=== PATIENT | male | born 1945 | race Caucasian/White ===

== ENCOUNTER → 2023-04-22 | Outpatient (CLI) | payer OTHER ==
[~2023-04-22] MED LIST: AMLO25TA PO; ATOR80TA59 PO; CARV12.5 PO; LISI40TA4 PO; METF500T13 PO; NOXI1TAB PO; PRED5TA PO; ZYTI250T PO
== END ==
LOC: M ONCR 15:26
PROVIDERS: ATTEND General Practice
DX: C61 Malignant neoplasm of prostate (principal); F10.20 Alcohol dependence, uncomplicated; N52.9 Male erectile dysfunction, unspecified; E11.9 Type 2 diabetes mellitus without complications; I10 Essential (primary) hypertension; K21.9 Gastro-esophageal reflux disease without esophagitis; E78.5 Hyperlipidemia, unspecified; Z71.2 Person consulting for explanation of examination or test findings

== ENCOUNTER 2023-04-28 09:44 | Outpatient (RCR) | payer MEDICARE, OTHER | END 2023-05-02 | LOC: M ONCR 09:44 | PROVIDERS: ATTEND General Practice | DX: C61 Malignant neoplasm of prostate (principal) ==

== ENCOUNTER → 2023-06-02 | Outpatient (RCR) | payer OTHER | LOC: M ONCR 05-07 09:58 | PROVIDERS: ATTEND General Practice | DX: C61 Malignant neoplasm of prostate (principal) ==

== ENCOUNTER 2023-06-23 10:31 | Outpatient (RCR) | payer MEDICARE, OTHER ==
[~2023-06-23 10:31] MED LIST changes: +FLOM0.4C39 PO
== END 2023-07-03 ==
LOC: M ONCR 10:31
PROVIDERS: ATTEND General Practice
DX: Z51.0 Encounter for antineoplastic radiation therapy (principal); C61 Malignant neoplasm of prostate

== ENCOUNTER → 2023-09-23 | Outpatient (CLI) | payer MEDICARE, OTHER ==
[2023-09-23 12:17] LABS: ALBUMIN 3.7 G/DL (3.2-5.2); ALKALINE PHOSPHATASE 90 U/L (46-116); ALT/SGPT 16 U/L (7.0-40); AST/SGOT 11 U/L (<34); BILIRUBIN,TOTAL 0.5 MG/DL (0.3-1.2); BLOOD UREA NITROGEN 15 MG/DL (9-23); CALCIUM LEVEL 8.7 MG/DL (8.3-10.6); CARBON DIOXIDE LEVEL 28 MMOL/L (20-31); CHLORIDE LEVEL 106 MMOL/L (98-107); CREATININE FOR GFR 0.61 MG/DL (0.70-1.30); GLOMERULAR FILTRATION RATE > 60.0 (>42); GLUCOSE, FASTING 102 MG/DL (74-106); POTASSIUM SERUM 3.8 MMOL/L (3.5-5.1); PROSTATIC SPECIFIC AG MONITOR 0.16 NG/ML (< 4.00); SODIUM LEVEL 139 MMOL/L (136-145); TOTAL PROTEIN 6.3 G/DL (5.7-8.2)
[2023-09-23 12:32] LABS: TESTOSTERONE < 7 NG/DL (241-827)
== END ==
LOC: M ONCR 10:52
PROVIDERS: ATTEND General Practice
DX: C61 Malignant neoplasm of prostate (principal); R35.0 Frequency of micturition; R35.1 Nocturia; Z71.2 Person consulting for explanation of examination or test findings; Z79.52 Long term (current) use of systemic steroids; Z79.818 Long term (current) use of other agents affecting estrogen receptors and estrogen levels; Z79.84 Long term (current) use of oral hypoglycemic drugs; Z79.899 Other long term (current) drug therapy; Z72.89 Other problems related to lifestyle; F17.210 Nicotine dependence, cigarettes, uncomplicated; Z92.3 Personal history of irradiation
CPT/HCPCS: 36415; 80053; 84153; 84403; G0463

== ENCOUNTER → 2023-11-10 | Outpatient (REF) | payer MEDICARE, OTHER ==
[2023-11-10 18:56] LABS: APPEARANCE, URINE CLEAR (CLEAR); BACTERIA, URINE AUTO NEGATIVE (NEGATIVE); BILIRUBIN, URINE AUTO NEGATIVE (NEGATIVE); BLOOD, URINE BLOOD NEGATIVE (NEGATIVE); COLOR, URINE YELLOW (YELLOW); GLUCOSE, URINE (UA) AUTO NEGATIVE (NEGATIVE); KETONE, URINE AUTO NEGATIVE (NEGATIVE); LEUKOCYTE ESTERASE, URINE AUTO NEGATIVE (NEGATIVE); NITRITE, URINE AUTO NEGATIVE (NEGATIVE); PROTEIN, URINE AUTO NEGATIVE (NEGATIVE); RBC, URINE AUTO 3 /HPF (0-3); SPECIFIC GRAVITY URINE AUTO 1.014 (1.002-1.035); SQUAMOUS EPITHELIAL CELL UR AU 0 /HPF (0-6); WBC, URINE AUTO 0 /HPF (0-3)
== END ==
LOC: M SMT 17:21
PROVIDERS: ATTEND Urology
DX: R35.0 Frequency of micturition (principal)

== ENCOUNTER → 2024-06-25 | Outpatient (CLI) | payer MEDICARE, OTHER ==
[~2024-06-25] MED LIST changes: +POTA-298 PO
[2024-06-25 11:16] LABS: BASO % 0.1 % (0.0-1.0); EOS # 0.2 10^3/uL (0.0-0.5); EOS % 2.2 % (0.0-3.0); HEMOGLOBIN 12.9 g/dl (13.5-17.5); LYMPH # 0.5 10^3/uL (1.5-5.0); LYMPH % 6.9 % (24.0-44.0); MEAN CORPUSCULAR HEMOGLOBIN 32.2 pg (27.0-33.0); MEAN CORPUSCULAR HGB CONC 34.9 g/dl (32.0-36.5); MEAN CORPUSCULAR VOLUME 92.3 fl (80.0-96.0); MONO # 0.6 10^3/uL (0.0-0.8); MONO % 8.5 % (2.0-8.0); NEUTROPHILS # 5.9 10^3/uL (1.5-8.5); PLATELET COUNT, AUTOMATED 226 10^3/uL (150-450); RED BLOOD COUNT 4.01 10^6/uL (4.30-6.10); WHITE BLOOD COUNT 7.2 10^3/uL (4.0-10.0)
[2024-06-25 11:50] LABS: ALBUMIN 3.5 G/DL (3.2-5.2); ALKALINE PHOSPHATASE 100 U/L (46-116); ALT/SGPT 17 U/L (7.0-40); AST/SGOT 12 U/L (<34); BILIRUBIN,TOTAL 0.5 MG/DL (0.3-1.2); BLOOD UREA NITROGEN 10 MG/DL (9-23); CALCIUM LEVEL 8.8 MG/DL (8.3-10.6); CARBON DIOXIDE LEVEL 28 MMOL/L (20-31); CHLORIDE LEVEL 103 MMOL/L (98-107); CREATININE FOR GFR 0.65 MG/DL (0.70-1.30); GLOMERULAR FILTRATION RATE > 60.0 (>42); GLUCOSE, FASTING 147 MG/DL (74-106); POTASSIUM SERUM 3.5 MMOL/L (3.5-5.1); PROSTATIC SPECIFIC AG MONITOR 0.04 NG/ML (< 4.00); SODIUM LEVEL 137 MMOL/L (136-145); TOTAL PROTEIN 6.3 G/DL (5.7-8.2)
== END ==
LOC: M ONCR 09:52
PROVIDERS: ATTEND General Practice
DX: C61 Malignant neoplasm of prostate (principal); F17.210 Nicotine dependence, cigarettes, uncomplicated; Z79.818 Long term (current) use of other agents affecting estrogen receptors and estrogen levels; Z79.52 Long term (current) use of systemic steroids; Z79.84 Long term (current) use of oral hypoglycemic drugs; Z79.899 Other long term (current) drug therapy; Z92.3 Personal history of irradiation
CPT/HCPCS: 36415; 80053; 84153; 85025; G0463

== ENCOUNTER → 2024-09-29 | Outpatient (CLI) | payer OTHER, MEDICARE ==
[2024-09-29 12:35] LABS: PROSTATIC SPECIFIC AG MONITOR 0.04 NG/ML (< 4.00)
[2024-09-29 12:38] LABS: ALBUMIN 3.5 G/DL (3.2-5.2); ALKALINE PHOSPHATASE 92 U/L (40-129); ALT/SGPT 16 U/L (7.0-40); AST/SGOT 12 U/L (<34); BILIRUBIN,TOTAL 0.6 MG/DL (0.3-1.2); BLOOD UREA NITROGEN 15 MG/DL (9-23); CALCIUM LEVEL 9.3 MG/DL (8.3-10.6); CARBON DIOXIDE LEVEL 26 MMOL/L (20-31); CHLORIDE LEVEL 103 MMOL/L (98-107); CREATININE FOR GFR 0.87 MG/DL (0.70-1.30); GLOMERULAR FILTRATION RATE > 60.0 (>42); GLUCOSE, FASTING 113 MG/DL (74-106); POTASSIUM SERUM 3.2 MMOL/L (3.5-5.1); SODIUM LEVEL 139 MMOL/L (136-145); TOTAL PROTEIN 6.2 G/DL (5.7-8.2)
[2024-09-29 12:44] LABS: TESTOSTERONE < 7 NG/DL (241-827)
== END ==
LOC: M ONCR 10:55
PROVIDERS: ATTEND General Practice
DX: C61 Malignant neoplasm of prostate (principal); R35.0 Frequency of micturition; R39.15 Urgency of urination; R19.4 Change in bowel habit; Z92.3 Personal history of irradiation; Z79.818 Long term (current) use of other agents affecting estrogen receptors and estrogen levels; Z79.52 Long term (current) use of systemic steroids; F17.210 Nicotine dependence, cigarettes, uncomplicated; Z72.89 Other problems related to lifestyle; Z79.84 Long term (current) use of oral hypoglycemic drugs; Z79.899 Other long term (current) drug therapy
CPT/HCPCS: 36415; 80053; 84153; 84403; G0463

== ENCOUNTER → 2025-02-09 | Outpatient (CLI) | payer MEDICARE, OTHER ==
[~2025-02-09] MED LIST changes: +PRED1TABL PO
[2025-02-09 09:41] LABS: PROSTATIC SPECIFIC AG MONITOR 0.04 NG/ML (< 4.00)
[2025-02-09 09:42] LABS: ALBUMIN 3.6 G/DL (3.2-5.2); ALKALINE PHOSPHATASE 104 U/L (40-129); ALT/SGPT 17 U/L (7.0-40); AST/SGOT 9 U/L (<34); BILIRUBIN,TOTAL 0.6 MG/DL (0.3-1.2); BLOOD UREA NITROGEN 11 MG/DL (9-23); CALCIUM LEVEL 8.9 MG/DL (8.3-10.6); CARBON DIOXIDE LEVEL 32 MMOL/L (20-31); CHLORIDE LEVEL 102 MMOL/L (98-107); CREATININE FOR GFR 0.74 MG/DL (0.70-1.30); GLOMERULAR FILTRATION RATE > 90.0 (>42); GLUCOSE, FASTING 134 MG/DL (74-106); POTASSIUM SERUM 3.4 MMOL/L (3.5-5.1); SODIUM LEVEL 139 MMOL/L (136-145); TOTAL PROTEIN 6.3 G/DL (5.7-8.2)
[2025-02-09 09:47] LABS: TESTOSTERONE < 7 NG/DL (241-827)
== END ==
LOC: M ONCR 08:46
PROVIDERS: ATTEND General Practice
DX: C61 Malignant neoplasm of prostate (principal); F17.218 Nicotine dependence, cigarettes, with other nicotine-induced disorders; Z72.89 Other problems related to lifestyle; Z79.52 Long term (current) use of systemic steroids; Z79.84 Long term (current) use of oral hypoglycemic drugs; Z79.818 Long term (current) use of other agents affecting estrogen receptors and estrogen levels; Z79.899 Other long term (current) drug therapy; Z92.3 Personal history of irradiation
CPT/HCPCS: 36415; 80053; 84153; 84403; G0463

== ENCOUNTER → 2025-08-11 | Outpatient (CLI) | payer OTHER, MEDICARE ==
[~2025-08-11] MED LIST changes: -FLOM0.4C39 PO; +LISI40TA10 PO; -LISI40TA4 PO; +PRED-1142 PO; -PRED1TABL PO; +TAMS-18 PO
[2025-08-11 09:51] LABS: PROSTATIC SPECIFIC AG MONITOR 0.12 NG/ML (< 4.00)
[2025-08-11 09:54] LABS: ALT/SGPT 44 U/L (7.0-40); AST/SGOT 21 U/L (<34); CALCIUM LEVEL 8.7 MG/DL (8.3-10.6); CARBON DIOXIDE LEVEL 28 MMOL/L (20-31); CHLORIDE LEVEL 98 MMOL/L (98-107); CREATININE FOR GFR 0.70 MG/DL (0.70-1.30); GLOMERULAR FILTRATION RATE > 90.0 (>42); POTASSIUM SERUM 4.4 MMOL/L (3.5-5.1); SODIUM LEVEL 135 MMOL/L (136-145)
[2025-08-11 09:56] LABS: TESTOSTERONE 232 NG/DL (241-827)
== END ==
LOC: M ONCR 08:56
PROVIDERS: ATTEND General Practice
DX: Z08 Encounter for follow-up examination after completed treatment for malignant neoplasm (principal); Z85.46 Personal history of malignant neoplasm of prostate; Z79.84 Long term (current) use of oral hypoglycemic drugs; Z79.899 Other long term (current) drug therapy; Z92.3 Personal history of irradiation; Z92.23 Personal history of estrogen therapy
CPT/HCPCS: 36415; 80053; 84153; 84403; G0463